=== PATIENT | male | born 1945 | race Caucasian/White ===

== ENCOUNTER 2019-06-26 22:01 | Emergency (ER) | payer OTHER, BC ==
[~2019-06-26] VITALS: Ht 177.8 cm; Wt 129.3 kg
[~2019-06-26 22:01] MED LIST: AMLO5 PO; ASPI325 PO; ASPI81EC PO; ATOR40TA; BUSP10; CIPR500 PO; CYCL10 PO; EZET10 PO; HYDACE5 PO; HYDCHL12.5 PO; IBUP800; IBUP800 PO; LISI5; LISI5 PO; Lisinopril2.5 MG; MECL25 PO; METF500 PO; METO25 PO; METO25ER PO; MSM; NEBI5 PO; OMEP20ER PO; OXYC5 PO; POTCHL20ER PO; PRAM.125 PO; ROSU10TA PO; ROVASTATIN; SERT50; SIMV80 PO; [UNRECOGNIZED DRUG - OTHER]; [UNRECOGNIZED DRUG - REMARK]
[2019-06-26 22:34] LABS: BASOPHILS ABSOLUTE AUTO 0.03 K/mm3 (0.00-0.23); BASOPHILS PERCENT AUTO 0 % (0-2); EOSINOPHILS PERCENT AUTO 1 % (0-6); Hematocrit 45.3 % (37.0-53.0); Hemoglobin 15.3 g/dL (13.5-17.5); IMMATURE GRAN ABSOLUTE AUTO 0.03 K/mm3 (0.00-0.10); IMMATURE GRAN PERCENT AUTO 0 % (0-1); LYMPHOCYTES ABSOLUTE AUTO 1.78 K/mm3 (0.84-5.20); LYMPHOCYTES PERCENT AUTO 22 % (21-46); MONOCYTES ABSOLUTE AUTO 0.45 K/mm3 (0.16-1.47); MONOCYTES PERCENT AUTO 6 % (4-13); Mean Corpuscular HGB 31.8 pg (26.0-34.0); Mean Corpuscular HGB Conc 33.8 g/dL (31.5-36.5); Mean Corpuscular Volume 94 fL (80-100); Mean Platelet Volume 9.4 fL (9.1-12.4); NEUTROPHILS ABSOLUTE AUTO 5.73 K/mm3 (1.96-9.15); NEUTROPHILS PERCENT AUTO 71 % (41-73); Platelet Count 217 K/mm3 (150-400); RDW Coefficient Variation 11.8 % (11.7-14.2); RDW Standard Deviation 41.1 fL (35.1-46.3); Red Blood Cell Count 4.81 M/mm3 (4.30-5.90); White Blood Cell Count 8.12 K/mm3 (4.00-11.30)
[2019-06-26 22:49] LABS: Alanine Aminotransfer (ALT/SGP 21 U/L (12-78); Albumin, Blood 3.1 g/dL (3.4-5.0); Albumin/Globulin Ratio 0.8 (0.8-1.8); Alk Phos 107 U/L (50-136); Anion Gap 6 mmol/L (6-16); Aspartate Aminotrans (AST/SGOT 15 U/L (12-37); Bilirubin, Total 0.3 mg/dL (0.1-1.0); Blood Urea Nitrogen 19 mg/dL (8-24); Bun/Creatinine Ratio 18.4 (12.0-20.0); CO2, Blood 29 mmol/L (21-32); Calcium, Blood 8.8 mg/dL (8.5-10.1); Chloride, Blood 106 mmol/L (98-108); Creatinine, Blood 1.03 mg/dL (0.60-1.20); Globulin, Blood 4.1 g/dL (2.2-4.0); Glomerular Filtration Rate >60 (60-); Glucose, Blood 136 mg/dL (70-99); Potassium, Blood 3.7 mmol/L (3.5-5.5); Sodium, Blood 141 mmol/L (136-145); Total Protein, Blood 7.2 g/dL (6.4-8.2); Troponin I <0.015 ng/mL (0.000-0.040)
== END 2019-06-27 03:42 | disposition home or self-care (01) ==
LOC: ER 22:01
PROVIDERS: Physician Assistant
DX: R07.9 Chest pain, unspecified (principal); Z95.1 Presence of aortocoronary bypass graft; Z85.46 Personal history of malignant neoplasm of prostate; Z79.82 Long term (current) use of aspirin; Z79.899 Other long term (current) drug therapy
CPT/HCPCS: 36415; 71046; 80053; 84484; 85025; 93005; 93010; 99285-25

== ENCOUNTER 2019-11-29 16:59 | Observation (INO) | payer OTHER, BC ==
[~2019-11-29] VITALS: Ht 175.3 cm; Wt 140.5 kg
[~2019-11-29 16:59] MED LIST changes: -ATOR40TA; +ATOR40TA PO; +Aspir 8181 MG PO; -IBUP800; -LISI5; -METO25 PO
[2019-11-29 17:35] LABS: BASOPHILS ABSOLUTE AUTO 0.03 K/mm3 (0.00-0.23); BASOPHILS PERCENT AUTO 0 % (0-2); EOSINOPHILS ABSOLUTE AUTO 0.09 K/mm3 (0.00-0.68); EOSINOPHILS PERCENT AUTO 1 % (0-6); Hematocrit 48.1 % (37.0-53.0); Hemoglobin 16.2 g/dL (13.5-17.5); IMMATURE GRAN ABSOLUTE AUTO 0.06 K/mm3 (0.00-0.10); IMMATURE GRAN PERCENT AUTO 1 % (0-1); LYMPHOCYTES ABSOLUTE AUTO 1.77 K/mm3 (0.84-5.20); LYMPHOCYTES PERCENT AUTO 20 % (21-46); MONOCYTES ABSOLUTE AUTO 0.43 K/mm3 (0.16-1.47); MONOCYTES PERCENT AUTO 5 % (4-13); Mean Corpuscular HGB Conc 33.7 g/dL (31.5-36.5); Mean Corpuscular Volume 92 fL (80-100); Mean Platelet Volume 9.2 fL (9.1-12.4); NEUTROPHILS ABSOLUTE AUTO 6.47 K/mm3 (1.96-9.15); NEUTROPHILS PERCENT AUTO 73 % (41-73); Platelet Count 262 K/mm3 (150-400); RDW Coefficient Variation 11.9 % (11.7-14.2); RDW Standard Deviation 40.4 fL (35.1-46.3); Red Blood Cell Count 5.22 M/mm3 (4.30-5.90); White Blood Cell Count 8.85 K/mm3 (4.00-11.30)
[2019-11-29 17:56] LABS: Alanine Aminotransfer (ALT/SGP 26 U/L (12-78); Albumin, Blood 2.9 g/dL (3.4-5.0); Albumin/Globulin Ratio 0.7 (0.8-1.8); Alk Phos 96 U/L (50-136); Anion Gap 6 mmol/L (6-16); Aspartate Aminotrans (AST/SGOT 17 U/L (12-37); Bilirubin, Total 0.3 mg/dL (0.1-1.0); Blood Urea Nitrogen 15 mg/dL (8-24); Bun/Creatinine Ratio 13.5 (12.0-20.0); CO2, Blood 25 mmol/L (21-32); Calcium, Blood 8.6 mg/dL (8.5-10.1); Chloride, Blood 108 mmol/L (98-108); Creatinine, Blood 1.11 mg/dL (0.60-1.20); Globulin, Blood 4.4 g/dL (2.2-4.0); Glomerular Filtration Rate >60 (60-); Glucose, Blood 133 mg/dL (70-99); Potassium, Blood 3.8 mmol/L (3.5-5.5); Sodium, Blood 139 mmol/L (136-145); Total Protein, Blood 7.3 g/dL (6.4-8.2); Troponin I <0.015 ng/mL (0.000-0.040)
[2019-11-29] MEDS ORDERED: METO25 PO (18:57)
[2019-11-29] MEDS ORDERED: IBUP800 PO (18:57)
[2019-11-29] MEDS ORDERED: FLUO10 PO (18:57)
[2019-11-29] MEDS ORDERED: Prinivil10 MG PO (18:57)
[2019-11-29] MEDS ORDERED: DOCU100 PO (18:58)
[2019-11-29] MEDS ORDERED: Vitamin D2000 UNIT PO (18:58)
[2019-11-29] MEDS ORDERED: LIDO700A20 TOP (18:59)
[2019-11-29] MEDS ORDERED: [UNRECOGNIZED DRUG - CODE] PO (19:01)
--- NOTE | 2019-11-30 04:59 | NUR ---
SHIFT SUMMARY- PT. NEW ADMIT FROM ED. A&OX4, INDEP. PT. DENIED ANY CHEST PAIN OR ANY OTHER SX'S THIS SHIFT. SR ON TELE. PT. SCHEDULED FOR STRESS TEST TODAY. RESTING COMFORTABLY IN BED, NO APPARENT DISTRESS NOTED. CALL LIGHT WITHIN REACH AND SIDE RAILS UP X2. WILL CONT TO MONITOR.
--- NOTE | 2019-11-30 18:36 | NUR ---
SHIFT SUMMARY PT IS A&O, VSS, SHOWING SINUS RHYTHM W/ 1 DEGREE AVB ON TELEMETRY. NO REPORTS OF ANY CP OR SHORTNESS OF BREATH TODAY. PT COMPLETED 1ST PORTION OF STRESS TEST THIS EVENING AND WILL GET 2ND PORTION TOMORROW. FAMILY HAS BEEN AT BEDSIDE THROUGH OUT DAY HAVE BEEN GIVEN UPDATES PER PT REQUEST.
--- NOTE | 2019-12-01 04:33 | NUR ---
ENROLLMENT SERVICES VICE PRESIDENT SUMMARY NO ACUTE CHANGES THIS SHIFT. PT AAOX4 AND PLEASANT. PT STILL WITHOUT CHEST PAIN THIS SHIFT. DENIES SOB, N/V. PT TO HAVE 2ND PART OF STRESS TEST LATER TODAY. VSS, WILL CONTINUE TO MONITOR.
--- NOTE | 2019-12-01 12:22 | NUR ---
verbal consent for student nurse to particpate in care. patient open to clinical nursing intern interview at bedside in private setting Pt. is A&Ox3 bright affect with frequent smiles good eye contact. Pt. is receptive to having this student nurse particapate in his care.Pt. denies angina at this time.
--- NOTE | 2019-12-01 16:31 | NUR ---
SHIFT SUMMARY PATIENT HAS HAD NO ACUTE CARDIAC EVENTS. 2ND PART OF STRESS TEST PERFORMED. AWAITING RESULTS. ABLE TO MAKE HIS NEEDS KNOWN. INDEPENDENT IN THE ROOM.
--- NOTE | 2019-12-02 06:42 | NUR ---
Rn summary: Patient has been alert and oriented. Assessment is WNL. Has had sl discoomfort to right upper chest, feels it is lung related. Pt has had no other pain. Tele continues to show SR with 1 st degree AV block rate in 60;s. Pt states he has rested well this shift. Pt is hoping to be discharged today. Independant in room. Call light in reach.
[2019-12-02] MEDS ORDERED: BUSP10 PO (10:09)
--- NOTE | 2019-12-02 10:39 | NUR ---
PATIENT LEFT ON FOOT, SN BOLDEN ESCORTED PATIENT OUT OF THE ROOM. PATIENT HAD NO ACUTE ISSUES NOTED IN STRESS TEST PER DR. GRAMAJO. DR. GRAMAJO VISITED WITH PATIENT PRIOR TO DISCHARGE. PATIENT REQUSTED TO MAKE HIS OWN FOLLOW UP APPOINTMENT WITH PCP. PATIENT HAD AN ACTIVE ORDER FOR [facility] STATED HE WOULD NOT FILL THIS "RX NEEDED". ABLE TO MAKE HIS NEEDS KNOWN. NO ACUTE ISSUES NOTED.
== END 2019-12-02 10:38 | disposition home or self-care (01) ==
LOC: ER 16:59 → MEDS 17:00
PROVIDERS: Physician Assistant; ADMIT Family Medicine
DX: R07.9 Chest pain, unspecified (principal); F41.9 Anxiety disorder, unspecified; I10 Essential (primary) hypertension; R10.11 Right upper quadrant pain; R73.9 Hyperglycemia, unspecified; R73.03 Prediabetes; K21.9 Gastro-esophageal reflux disease without esophagitis; H91.90 Unspecified hearing loss, unspecified ear; I49.01 Ventricular fibrillation; I25.10 Atherosclerotic heart disease of native coronary artery without angina pectoris; Z88.0 Allergy status to penicillin; Z79.82 Long term (current) use of aspirin; Z79.899 Other long term (current) drug therapy; Z95.1 Presence of aortocoronary bypass graft
CPT/HCPCS: 36415; 71046; 76705; 78452; 80053; 82947; 83735; 83880; 84484; 85025; 93005; 93010; 93017; 99285-25; A9270-GY; A9500; G0378; J0706; J2785

== ENCOUNTER 2022-10-07 17:12 | Emergency (ER) | payer OTHER, BC ==
[~2022-10-07] VITALS: Ht 175.3 cm; Wt 142.4 kg
[~2022-10-07 17:12] MED LIST changes: +BUSP10 PO; +DOCU100 PO; +FLUO10 PO; +LIDO700A20 TOP; +METO25 PO; +Prinivil10 MG PO; +Vitamin D2000 UNIT PO; +[UNRECOGNIZED DRUG - CODE] PO
[2022-10-07 18:13] LABS: BASOPHILS ABSOLUTE AUTO 0.03 K/mm3 (0.00-0.23); BASOPHILS PERCENT AUTO 0 % (0-2); EOSINOPHILS ABSOLUTE AUTO 0.14 K/mm3 (0.00-0.68); EOSINOPHILS PERCENT AUTO 2 % (0-6); Hematocrit 44.3 % (37.0-53.0); Hemoglobin 15.2 g/dL (13.5-17.5); IMMATURE GRAN ABSOLUTE AUTO 0.04 K/mm3 (0.00-0.10); IMMATURE GRAN PERCENT AUTO 1 % (0-1); LYMPHOCYTES PERCENT AUTO 19 % (21-46); MONOCYTES ABSOLUTE AUTO 0.38 K/mm3 (0.16-1.47); MONOCYTES PERCENT AUTO 5 % (4-13); Mean Corpuscular HGB 31.2 pg (26.0-34.0); Mean Corpuscular HGB Conc 34.3 g/dL (31.5-36.5); Mean Corpuscular Volume 91 fL (80-100); Mean Platelet Volume 9.6 fL (9.1-12.4); NEUTROPHILS ABSOLUTE AUTO 6.27 K/mm3 (1.96-9.15); NEUTROPHILS PERCENT AUTO 74 % (41-73); Platelet Count 234 K/mm3 (150-400); RDW Standard Deviation 40.3 fL (35.1-46.3); Red Blood Cell Count 4.87 M/mm3 (4.30-5.90); White Blood Cell Count 8.46 K/mm3 (4.00-11.30)
[2022-10-07 18:29] LABS: Albumin, Blood 2.7 g/dL (3.4-5.0); Albumin/Globulin Ratio 0.6 (0.8-1.8); Bilirubin, Total 0.2 mg/dL (0.1-1.0); Bun/Creatinine Ratio 14.2 (12.0-20.0); Calcium, Blood 8.7 mg/dL (8.5-10.1); Creatinine, Blood 0.91 mg/dL (0.60-1.20); Globulin, Blood 4.4 g/dL (2.2-4.0); Total Protein, Blood 7.1 g/dL (6.4-8.2)
== END 2022-10-08 07:06 | disposition home or self-care (01) ==
LOC: ER 17:12
PROVIDERS: Student in an Organized Health Care Education/Training Program
DX: H81.399 Other peripheral vertigo, unspecified ear (principal); I25.10 Atherosclerotic heart disease of native coronary artery without angina pectoris; I10 Essential (primary) hypertension; E78.5 Hyperlipidemia, unspecified; Z79.82 Long term (current) use of aspirin; Z79.899 Other long term (current) drug therapy; Z88.0 Allergy status to penicillin
CPT/HCPCS: 36415; 80053; 84484; 85025; A9270

== ENCOUNTER 2023-03-31 22:19 | Observation (INO) | payer OTHER ==
[~2023-03-31] VITALS: Ht 172.7 cm; Wt 143.8 kg
[2023-03-31 22:52] LABS: BASOPHILS ABSOLUTE AUTO 0.03 K/mm3 (0.00-0.23); BASOPHILS PERCENT AUTO 0 % (0-2); EOSINOPHILS ABSOLUTE AUTO 0.15 K/mm3 (0.00-0.68); EOSINOPHILS PERCENT AUTO 2 % (0-6); Hemoglobin 15.4 g/dL (13.5-17.5); IMMATURE GRAN ABSOLUTE AUTO 0.03 K/mm3 (0.00-0.10); IMMATURE GRAN PERCENT AUTO 0 % (0-1); LYMPHOCYTES ABSOLUTE AUTO 2.44 K/mm3 (0.84-5.20); LYMPHOCYTES PERCENT AUTO 28 % (21-46); MONOCYTES ABSOLUTE AUTO 0.57 K/mm3 (0.16-1.47); MONOCYTES PERCENT AUTO 6 % (4-13); Mean Corpuscular HGB 31.3 pg (26.0-34.0); Mean Corpuscular HGB Conc 34.2 g/dL (31.5-36.5); Mean Corpuscular Volume 92 fL (80-100); Mean Platelet Volume 9.3 fL (9.1-12.4); NEUTROPHILS ABSOLUTE AUTO 5.65 K/mm3 (1.96-9.15); NEUTROPHILS PERCENT AUTO 64 % (41-73); Platelet Count 235 K/mm3 (150-400); RDW Coefficient Variation 12.2 % (11.7-14.2); RDW Standard Deviation 40.7 fL (35.1-46.3); Red Blood Cell Count 4.92 M/mm3 (4.30-5.90); White Blood Cell Count 8.87 K/mm3 (4.00-11.30)
[2023-03-31 23:11] LABS: Albumin, Blood 2.6 g/dL (3.4-5.0); Albumin/Globulin Ratio 0.6 (0.8-1.8); Bilirubin, Total 0.3 mg/dL (0.1-1.0); Bun/Creatinine Ratio 11.1 (12.0-20.0); Calcium, Blood 8.3 mg/dL (8.5-10.1); Creatinine, Blood 1.08 mg/dL (0.60-1.20); Globulin, Blood 4.3 g/dL (2.2-4.0); Potassium, Blood 3.8 mmol/L (3.5-5.5); Total Protein, Blood 6.9 g/dL (6.4-8.2)
[2023-04-01] MEDS ORDERED: Prinivil10 MG PO (00:57)
[2023-04-01] MEDS ORDERED: CYCLOBENZAPRINE5 MG PO (00:58)
[2023-04-01] MEDS ORDERED: ZOLOFT50 MG PO (00:58)
[2023-04-01] MEDS ORDERED: PRAMIPEXOLE0.125 M1 PO (00:59)
[2023-04-01 02:08] VITALS: BP 171/79
--- NOTE | 2023-04-01 03:40 | NUR ---
ADMIT NOTE 77 YR OLD MALE ADMITTED TO [facility] FROM THE ED WITH DX OF CHEST PAIN. ALERT AND ORIENTED X 4. DENIED CHEST PAIN WHEN ASSESSED. AFFECT CHEERFUL. VSS. CONTINENT. UP AD RIMMA. NO NOTED SKIN ANOMALTIES. ORIENTED TO USE OF CALL LIGHT. CALL LIGHT IN REACH. 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 AGREED TO NOTIFY NURSE IF CHEST PAIN OR VERTIGO. WILL CONTINUE TO MONITOR.
--- NOTE | 2023-04-01 04:14 | NUR ---
DRILL RIG OPERATOR SUMMARY VSS. WAS ADMITTED EARLIER IN THE SHIFT WITH DX OF CHEST PAIN. HX PACE MAKER. MED [employer] A-PACED IN THE 50'S. DENIED CHEST PAIN WHEN ASKED. AGREED TO NOTIFY NURSE IF CHEST PAIN OR SYNCOPE, ETC. OCCURRED. HAS BEEN RESTING QUIETLY. NO NOTED S/S ACUTE DISTRESS. CALL LIGHT IN REACH. WILL CONTINUE TO MONITOR.
[2023-04-01 05:19] LABS: BASOPHILS ABSOLUTE AUTO 0.03 K/mm3 (0.00-0.23); BASOPHILS PERCENT AUTO 0 % (0-2); EOSINOPHILS ABSOLUTE AUTO 0.16 K/mm3 (0.00-0.68); EOSINOPHILS PERCENT AUTO 2 % (0-6); Hematocrit 44.9 % (37.0-53.0); Hemoglobin 15.2 g/dL (13.5-17.5); IMMATURE GRAN ABSOLUTE AUTO 0.02 K/mm3 (0.00-0.10); IMMATURE GRAN PERCENT AUTO 0 % (0-1); LYMPHOCYTES ABSOLUTE AUTO 2.33 K/mm3 (0.84-5.20); LYMPHOCYTES PERCENT AUTO 25 % (21-46); MONOCYTES ABSOLUTE AUTO 0.56 K/mm3 (0.16-1.47); MONOCYTES PERCENT AUTO 6 % (4-13); Mean Corpuscular HGB Conc 33.9 g/dL (31.5-36.5); Mean Corpuscular Volume 91 fL (80-100); Mean Platelet Volume 9.7 fL (9.1-12.4); NEUTROPHILS PERCENT AUTO 67 % (41-73); Platelet Count 251 K/mm3 (150-400); RDW Coefficient Variation 12.3 % (11.7-14.2); RDW Standard Deviation 41.6 fL (35.1-46.3); Red Blood Cell Count 4.91 M/mm3 (4.30-5.90)
[2023-04-01 05:50] LABS: Albumin, Blood 2.8 g/dL (3.4-5.0); Albumin/Globulin Ratio 0.7 (0.8-1.8); Bilirubin, Total 0.5 mg/dL (0.1-1.0); Bun/Creatinine Ratio 11.5 (12.0-20.0); Calcium, Blood 8.6 mg/dL (8.5-10.1); Creatinine, Blood 1.13 mg/dL (0.60-1.20); Globulin, Blood 4.3 g/dL (2.2-4.0); Potassium, Blood 3.9 mmol/L (3.5-5.5); Total Protein, Blood 7.1 g/dL (6.4-8.2)
[2023-04-01 07:37] VITALS: BP 129/70
[2023-04-01 15:17] VITALS: BP 149/76
--- NOTE | 2023-04-01 17:16 | NUR ---
SHIFT SUMMARY PT IS AOX4 AND INDEPENDENT IN THE ROOM. HE WENT NPO AFTER BREAKFAST FOR THE FIRST PART OF HIS NUCLEAR TEST. HE IS TO UNDERGO THE SECOND PORTION TOMORROW AT 1330, HE WILL GO NPO AGAIN TOMORROW AFTER BREAKFAST. HE HAS HAD NO C/O CP/P/SOB/CHEST PRESSURE OR TIGHTNESS. HE IS COOPERATIVE WITH CARE AND MAKES HIS NEEDS KNOWN. CALL LIGHT IS WITHIN REACH, BED IN THE LOWEST POSITION. WILL REPORT TO ONCOMING NURSE.
[2023-04-01 19:18] VITALS: BP 150/89
[2023-04-02 04:59] VITALS: BP 144/73
[2023-04-02 07:47] VITALS: BP 132/81
[2023-04-02 15:30] VITALS: BP 147/89
--- NOTE | 2023-04-02 17:21 | NUR ---
SHIFT SUMMARY PT AOX4, INDEPENDENT IN THE ROOM. THE SECOND PORTION OF HIS STRESS TEST WAS DONE TODAY, TOMORROW HE WILL CONSULT WITH A TRIGONOMETRY TUTOR PER DR. REYES. HE HAS HAD NO C/O CP THIS SHIFT. HE HAS BEEN RESTING COMFORTABLY WITH NO COMPLAINTS. HIS HAS BEEN AT THE BS. PT COULD POSSIBLY DISCHARGE TOMORROW AFTER THE CONSULTATION. HE APPEARED TO BE A LITTLE UPSET ABOUT THE NEWS BUT WE DISCUSSED HOW HE FELT AND WHAT OPTIONS HE WOULD CONSIDER. BED IN THE LOWEST POSITION, CALL LIGHT WITHIN REACH. WILL REPORT TO ONCOMING NURSE.
[2023-04-02 19:30] VITALS: BP 148/69
[2023-04-02 22:27] VITALS: BP 102/63
[2023-04-02 22:29] VITALS: BP 127/62
[2023-04-03] VITALS (11 sets, daily range): BP systolic 114–139; BP diastolic 71–101
--- NOTE | 2023-04-03 03:44 | NUR ---
SHIFT HAS BEEN MOSTLY UNREMARKABLE. WEAVING INSPECTOR VISITED WITH PATIENT EARLY IN SHIFT, AROUND ~2100. DISCUSSED ECHO AND ANGIOGRAM TO BE PERFORMED TODAY. PT HAS BEEN NPO SINCE MIDNIGHT CONSEQUENCE. COMPLAINED OF BACK AND NECK PAIN THAT WAS ALLEVIATED WITH PRN TYLENOL. COMPLAINED OF RESTLESS LEGS THIS MORNING AND RECEIVED ONE TIME ORDER OF MIRAPEX FROM HOSPITALIST WHICH ALLEVIATED SYMPTOMS. SHIFT OTHERWISE NOT NOTEWORTHY. TELE ON WITH NO EVENTS OVER SHIFT. BED LOCKED IN LOWEST POSITION. CALL LIGHT LEFT WITHIN REACH.
[2023-04-03 06:12] LABS: BASOPHILS ABSOLUTE AUTO 0.03 K/mm3 (0.00-0.23); BASOPHILS PERCENT AUTO 0 % (0-2); EOSINOPHILS ABSOLUTE AUTO 0.11 K/mm3 (0.00-0.68); EOSINOPHILS PERCENT AUTO 1 % (0-6); Hematocrit 48.2 % (37.0-53.0); Hemoglobin 16.7 g/dL (13.5-17.5); IMMATURE GRAN ABSOLUTE AUTO 0.02 K/mm3 (0.00-0.10); IMMATURE GRAN PERCENT AUTO 0 % (0-1); LYMPHOCYTES ABSOLUTE AUTO 2.03 K/mm3 (0.84-5.20); LYMPHOCYTES PERCENT AUTO 26 % (21-46); MONOCYTES PERCENT AUTO 6 % (4-13); Mean Corpuscular HGB 31.3 pg (26.0-34.0); Mean Corpuscular HGB Conc 34.6 g/dL (31.5-36.5); Mean Corpuscular Volume 90 fL (80-100); Mean Platelet Volume 9.3 fL (9.1-12.4); NEUTROPHILS ABSOLUTE AUTO 5.28 K/mm3 (1.96-9.15); NEUTROPHILS PERCENT AUTO 66 % (41-73); Platelet Count 226 K/mm3 (150-400); RDW Coefficient Variation 12.2 % (11.7-14.2); RDW Standard Deviation 40.6 fL (35.1-46.3); Red Blood Cell Count 5.33 M/mm3 (4.30-5.90); White Blood Cell Count 7.97 K/mm3 (4.00-11.30)
[2023-04-03 06:31] LABS: Anion Gap 4 mmol/L (6-16); Blood Urea Nitrogen 15 mg/dL (8-24); Bun/Creatinine Ratio 14.9 (12.0-20.0); CHOL/HDL RATIO 2.8; CO2, Blood 27 mmol/L (21-32); Calcium, Blood 9.1 mg/dL (8.5-10.1); Chloride, Blood 106 mmol/L (98-108); Cholesterol 158 mg/dL (50-200); Creatinine, Blood 1.01 mg/dL (0.60-1.20); Glomerular Filtration Rate 77 (60-); Glucose, Blood 105 mg/dL (70-99); HDL Cholesterol 56 mg/dL (>39); LDL/HDL RATIO 1.5; Low Density Lipoprotein Chol 82 mg/dL (0-110); Potassium, Blood 3.9 mmol/L (3.5-5.5); Sodium, Blood 137 mmol/L (136-145); Triglycerides 100 mg/dL (30-160); Very Low Density Lipoprot Chol 20 mg/dL (6-32)
--- NOTE | 2023-04-03 11:14 | NUR ---
Patient NPO this morning, plan to go to tanbark laborer. Lovenox held, PO medications given. Vital signs stable. pt left medical unit at 1015 for procedure. will transfer to PCU after angiogram. Handoff report given to PCU nurse.
--- NOTE | 2023-04-03 12:05 | NUR ---
PT ARRIVED TO ROOM [id number] FROM GENERAL OPERATIONS AGENT. BEDSIDE REPORT RECEIVED FROM GENERAL OPERATIONS AGENT RN, R GROIN SITE C/D/I W NO SWELLING, BLEEDING OR HEMATOMA NOTED. PT EDUCATED ABOUT FLAT TIME AND RISK OF BLEEDING. PT VERBALIZES UNDERSTANDING. PT AND ORIENTED TO ROOM, CALL LIGHT AND UNIT ROUTINES. THEY VERBALIZE UNDERSTANDING. AWAITING DATABASE MANAGER TO COME VISIT PT AND EXPLAIN ANGIOGRAM FINDINGS. SEE DOCUMENTED VS AND GROIN SITE CHECKS. CALL LIGHT IN REACH. WILL CONTINUE TO MONITOR.
[2023-04-03] MEDS ORDERED: Isosorbide Mono30 MG PO (16:48)
--- NOTE | 2023-04-03 17:43 | NUR ---
SHIFT SUMMARY: NO CHANGES SINCE LAST NOTE. R GROIN SITE REMAINS WNL, C/D/I, NO BLEEDING OR HEMATOMA NOTED. R PEDAL PULSE REMAINS STRONG. PT HAS NO C/O PAIN. SEE DOCUMENTED VS. PLAN FOR DISCHARGE THIS EVENING AFTER FLAT TIME COMPLETION AT 1800.
--- NOTE | 2023-04-03 18:20 | NUR ---
DISCHARGE TEACHING REVIEWED WITH PT AND HIS MICHELLE AT BEDSIDE. REVIEWED FOLLOW UP APPOINTMENTS, NEW/CHANGED MEDICATIONS AND EDUCATIONAL MATERIAL. PT AND HIS PROVIDED WITH VERBAL AND WRITTEN INSTRUCTIONS FOR GROIN SITE CARE, VERBALIZED UNDERSTANDING AND HAD NO QUESTIONS OR CONCERNS. IV REMOVED, WNL. PT DISCHARGED HOME WITH ALL BELONGINGS. NO FURTHER DISCHARGE NEEDS IDENTIFIED.
== END 2023-04-03 18:20 | disposition home or self-care (01) ==
LOC: ER 22:19 → MEDS 04-01 00:56 → PCU 04-03 12:23
PROVIDERS: Emergency Medicine; Family Medicine; Internal Medicine Cardiovascular Disease; ADMIT Student in an Organized Health Care Education/Training Program
DX: I25.110 Atherosclerotic heart disease of native coronary artery with unstable angina pectoris (principal); I25.82 Chronic total occlusion of coronary artery; R60.9 Edema, unspecified; I10 Essential (primary) hypertension; E78.5 Hyperlipidemia, unspecified; F41.9 Anxiety disorder, unspecified; G25.81 Restless legs syndrome; K21.9 Gastro-esophageal reflux disease without esophagitis; G89.29 Other chronic pain; M54.50 Low back pain, unspecified; E66.01 Morbid (severe) obesity due to excess calories; I25.2 Old myocardial infarction; Z95.0 Presence of cardiac pacemaker; Z88.0 Allergy status to penicillin; Z79.82 Long term (current) use of aspirin; Z79.899 Other long term (current) drug therapy
CPT/HCPCS: 36415; 71046; 76937; 78452; 80048; 80053; 80061; 83880; 84484; 85025; 93005; 93010; 93017; 93306; 93455; 96372; 96374; 99152; 99153; 99285-25; A9270; A9500; C1769; C1894; G0378; J0280; J1644; J1650; J1940; J2250; J2785; J3010; J7030; J7050; Q9967

== ENCOUNTER 2023-10-22 09:26 | Emergency (ER) | payer OTHER ==
[~2023-10-22] VITALS: Ht 175.3 cm; Wt 138.3 kg
[~2023-10-22 09:26] MED LIST changes: +CYCLOBENZAPRINE5 MG PO; +Isosorbide Mono30 MG PO; +PRAMIPEXOLE0.125 M1 PO; +ZOLOFT50 MG PO
[2023-10-22 09:59] LABS: BASOPHILS ABSOLUTE AUTO 0.02 K/mm3 (0.00-0.23); BASOPHILS PERCENT AUTO 0 % (0-2); EOSINOPHILS ABSOLUTE AUTO 0.14 K/mm3 (0.00-0.68); EOSINOPHILS PERCENT AUTO 2 % (0-6); Hematocrit 44.9 % (37.0-53.0); IMMATURE GRAN ABSOLUTE AUTO 0.03 K/mm3 (0.00-0.10); IMMATURE GRAN PERCENT AUTO 0 % (0-1); LYMPHOCYTES ABSOLUTE AUTO 1.87 K/mm3 (0.84-5.20); LYMPHOCYTES PERCENT AUTO 26 % (21-46); MONOCYTES ABSOLUTE AUTO 0.31 K/mm3 (0.16-1.47); MONOCYTES PERCENT AUTO 4 % (4-13); Mean Corpuscular HGB 30.9 pg (26.0-34.0); Mean Corpuscular HGB Conc 33.4 g/dL (31.5-36.5); Mean Corpuscular Volume 92 fL (80-100); Mean Platelet Volume 9.5 fL (9.1-12.4); NEUTROPHILS ABSOLUTE AUTO 4.73 K/mm3 (1.96-9.15); NEUTROPHILS PERCENT AUTO 67 % (41-73); Platelet Count 204 K/mm3 (150-400); RDW Coefficient Variation 12.4 % (11.7-14.2); RDW Standard Deviation 42.2 fL (35.1-46.3); Red Blood Cell Count 4.86 M/mm3 (4.30-5.90)
[2023-10-22 10:17] LABS: Albumin, Blood 2.6 g/dL (3.4-5.0); Albumin/Globulin Ratio 0.6 (0.8-1.8); Bilirubin, Total 0.5 mg/dL (0.1-1.0); Bun/Creatinine Ratio 13.3 (12.0-20.0); Calcium, Blood 8.7 mg/dL (8.5-10.1); Creatinine, Blood 0.98 mg/dL (0.60-1.20); Globulin, Blood 4.4 g/dL (2.2-4.0); Potassium, Blood 3.8 mmol/L (3.5-5.5)
[2023-10-22 12:30] VITALS: BP 140/77
== END 2023-10-22 13:08 | disposition home or self-care (01) ==
LOC: ER 09:26
PROVIDERS: Emergency Medicine
DX: R55 Syncope and collapse (principal); I11.0 Hypertensive heart disease with heart failure; I50.9 Heart failure, unspecified; K21.9 Gastro-esophageal reflux disease without esophagitis; Z95.1 Presence of aortocoronary bypass graft; Z95.0 Presence of cardiac pacemaker; Z88.0 Allergy status to penicillin; Z79.82 Long term (current) use of aspirin; Z79.899 Other long term (current) drug therapy
CPT/HCPCS: 71046; 80053; 83735; 84484; 85025; 93005; 93010; 99284-25

== ENCOUNTER 2025-05-13 21:43 | Emergency (ER) | payer OTHER ==
[~2025-05-13] VITALS: Ht 175.3 cm; Wt 139.2 kg
[~2025-05-13 21:43] MED LIST changes: +EZETIMIBE10 M6 PO; +LISI20 PO; +SOAANZ20 M3 PO
[2025-05-13 23:03] LABS: BASOPHILS ABSOLUTE AUTO 0.03 K/mm3 (0.00-0.23); BASOPHILS PERCENT AUTO 0 % (0-2); EOSINOPHILS ABSOLUTE AUTO 0.19 K/mm3 (0.00-0.68); EOSINOPHILS PERCENT AUTO 2 % (0-6); Hematocrit 44.2 % (37.0-53.0); Hemoglobin 15.1 g/dL (13.5-17.5); IMMATURE GRAN ABSOLUTE AUTO 0.06 K/mm3 (0.00-0.10); IMMATURE GRAN PERCENT AUTO 1 % (0-1); LYMPHOCYTES ABSOLUTE AUTO 2.10 K/mm3 (0.84-5.20); LYMPHOCYTES PERCENT AUTO 21 % (21-46); MONOCYTES ABSOLUTE AUTO 0.59 K/mm3 (0.16-1.47); MONOCYTES PERCENT AUTO 6 % (4-13); Mean Corpuscular HGB Conc 34.2 g/dL (31.5-36.5); Mean Corpuscular Volume 92 fL (80-100); NEUTROPHILS ABSOLUTE AUTO 6.86 K/mm3 (1.96-9.15); NEUTROPHILS PERCENT AUTO 70 % (41-73); NRBC ABSOLUTE 0.00 K/mm3 (0.00-0.02); NRBC Auto 0.0 /100 WBC (0.0-0.2); RDW Coefficient Variation 12.2 % (11.7-14.2); RDW Standard Deviation 41.1 fL (35.1-46.3)
[2025-05-13 23:12] LABS: Alanine Aminotransfer (ALT/SGP 22.0 U/L (12-78); Albumin, Blood 2.4 g/dL (3.4-5.0); Albumin/Globulin Ratio 0.5 (0.8-1.8); Anion Gap 8.0 mmol/L (3-11); Aspartate Aminotrans (AST/SGOT 27.0 U/L (12-37); Bilirubin, Total 0.3 mg/dL (0.1-1.0); Blood Urea Nitrogen 15.0 mg/dL (8-24); CO2, Blood 26.0 mmol/L (21-32); Calcium, Blood 8.6 mg/dL (8.5-10.1); Chloride, Blood 107.0 mmol/L (98-108); Creatinine, Blood 1.11 mg/dL (0.60-1.20); Globulin, Blood 4.5 g/dL (2.2-4.0); Glucose, Blood 118.0 mg/dL (70-99); Potassium, Blood 4.7 mmol/L (3.5-5.5); Sodium, Blood 136.0 mmol/L (136-145); Total Protein, Blood 6.9 g/dL (6.4-8.2)
[2025-05-13 23:19] LABS: Platelet Count 213 K/mm3 (150-400)
[2025-05-14 07:45] VITALS: BP 140/82
== END 2025-05-14 07:46 | disposition home or self-care (01) ==
LOC: ER 21:43
PROVIDERS: Student in an Organized Health Care Education/Training Program
DX: R07.2 Precordial pain (principal); R06.02 Shortness of breath; K21.9 Gastro-esophageal reflux disease without esophagitis; I25.2 Old myocardial infarction; I11.0 Hypertensive heart disease with heart failure; I50.9 Heart failure, unspecified; Z79.82 Long term (current) use of aspirin; Z79.899 Other long term (current) drug therapy; Z88.0 Allergy status to penicillin
CPT/HCPCS: 71046; 80053; 83605; 83690; 83880; 84484; 85025; 85379; 93005; 93010; 99285-25